=== PATIENT | female | born 1970 | race Caucasian/White ===

== ENCOUNTER 2018-09-08 00:14 | Emergency (ER) | payer BC ==
[2018-09-08 00:23] VITALS: BP 119/72; PULSE 82; TEMP 98.2; BMI 22.6
--- NOTE | 2018-09-08 00:31 | PDOC ---
History of Present Illness - General Chief Complaint: Pain, Acute Stated Complaint: REDDNESS TO LF LOWER LEG Time Seen by Provider: 09/08/18 00:25 - History of Present Illness Initial Comments: 09/08/18 00:41 48 years old with no significant past medical history who presents to the emergency department with redness to her left calf. Patient just return from trip to [place] prior to trip she had a waxing done in her legs. She is unclear if the redness is secondary to a small infection after the waxing or if she was bitten by a bug No fever no chills no chest pain or shortness of breath redness is approximately 7 cm x 7 cm there is a punctate area There is mild pain which is persistent constant with no exacerbating or alleviating factors. Past History - Past Medical History Allergies/Adverse Reactions: Allergies Allergy/AdvReac Type Severity Reaction Status Date / Time No Known Allergies Allergy Unverified 03/16/15 13:58 Home Medications: Ambulatory Orders Doxycycline Monohydrate [Monodox] 100 mg PO Q12H #14 capsule 09/08/18 COPD: No - Suicide/Smoking/Psychosocial Hx Smoking History: Unknown if ever smoked Have you smoked in the past 12 months: No Number of Cigarettes Smoked Daily: 0 Information on smoking cessation initiated: No Hx Alcohol Use: No Drug/Substance Use Hx: No Review of Systems - Review of Systems Comments:: ROS: A complete review of 10 out of 10 review of systems is taken and is negative apart from what is previously mentioned below and in the HPI. *Physical Exam - Vital Signs Last Vital Signs Temp Pulse Resp BP Pulse Ox 98.2 F 82 14 119/72 98 09/08/18 00:20 09/08/18 00:20 09/08/18 00:20 09/08/18 00:20 09/08/18 00:20 - Physical Exam Comments: 09/08/18 00:43 Vitals: Triage Vital signs reviewed General Appearance: no acute distress, well nourished well developed, Head: Atraumatic, EExtremities: Full range of motion to all extremities, no cyanosis, clubbing, or edema Skin: Warm and dry, 7 cm x 7 cm area of cellulitis to left calf no obvious bite no lymphangitic spread Psych: normal mood, normal affect Medical Decision Making - Medical Decision Making 09/08/18 00:45 Well-appearing no apparent distress with small area of cellulitis to left calf differential diagnosis includes cellulitis from recently having legs waxed versus bug bite We'll treat with 70 course of doxycycline very strict return instructions discussed with patient. Findings, the need for follow-up and strict return instructions discussed with patient. *DC/Admit/Observation/Transfer Diagnosis at time of Disposition: Cellulitis Qualifiers: Site of cellulitis: extremity Site of cellulitis of extremity: lower extremity Laterality: left Qualified Code(s): L03.116 - Cellulitis of left lower limb - Discharge Dispostion Disposition: HOME Condition at time of disposition: Good Decision to Admit order: No - Prescriptions Prescriptions: Doxycycline Monohydrate [Monodox] 100 mg PO Q12H #14 capsule - Referrals - Patient Instructions Printed Discharge Instructions: Cellulitis Additional Instructions: Take doxycycline as prescribed. Take with an [id number] probiotic as directed on package. Return to ED immediately for significantly worsening symptoms streaking red lines fever chills or for any concerns otherwise follow- up with her primary care provider this week. - Post Discharge Activity
[2018-09-08] MEDS ORDERED: DOXYCYCLINE HYCLATE 100 MG CAPSULE PO ONE ×2 (00:37→00:39)
== END 2018-09-08 00:41 | disposition home or self-care (01) ==
LOC: FER 00:14
DX: L03.116 Cellulitis of left lower limb (principal)
CPT/HCPCS: 99282-25